=== PATIENT | female | born 1935 | race African-American/Black ===

== ENCOUNTER 2016-05-25 00:14 | Inpatient (IN) | payer MEDICARE, MEDICAID ==
--- NOTE | 2016-05-25 00:30 | ED Physician Chart ---
Chief Complaint/HPI - Patient Information Date Seen:: 05/25/16 Time Seen:: 00:20 Chief Complaint:: agitation History of Present Illness:: 80-year-old female history of bipolar disorder, brought in from care facility with acute, constant, moderate to severe, agitation since this morning. Has associated aggressive behavior and physically aggressive behavior toward staff. Limited history due to underlying uncooperative behavior, psychosis and dementia History provided by EMS and EMS run sheet Historian:: EMS Review:: Nurse's Note Reviewed, EMS run form Reviewed, Transfer documents Reviewed Review of Systems - Review of Systems Other: Complete system review otherwise unremarkable except as noted in history of present illness. Past Medical History - Past Medical History Past Medical History: HTN, DM, Dyslipidemia, Seizures, Other (long-term anticoagulant use, bipolar disorder) Family History: None Social History: Non Smoker, No Alcohol, No Drug Use, Care Facility Surgical History: None Psychiatricy History: None, Bipolar Medication: None Family Medical History - Family Member Mother History Unknown: Yes Physical Exam - Physical Examination Other:: INITIAL VITAL SIGNS: Reviewed by me GENERAL: Alert and interactive but demented and semicooperative. No acute distress HEAD: Head is normocephalic and atraumatic EYES: EOMI. PERRL. No scleral icterus. No conjunctival injection ENT: Moist mucous membranes. NECK: Supple. No masses. Full range of motion RESPIRATORY: No tachypnea. Clear breath sounds bilaterally. No wheezing, rales, or rhonchi CV: Regular rate and rhythm. No murmurs, rubs, or gallops ABDOMEN: Soft, non-distended, non-tender. No guarding. No rebound. No masses. EXTREMITIES: No deformity. No cyanosis. No edema. SKIN: Warm and dry. No obvious rashes. NEUROLOGIC: Alert and oriented. Face is symmetric. Speech is normal. Moves all extremities equally. Motor and sensory distally intact. Labs/Radiology/EKG Results - Lab Results Results: Lab Results 05/25/16 05/25/16 05/25/16 Range/Units 00:46 00:46 00:46 WBC 9.9 (4.8-10.8) Th/cmm RBC 4.19 (3.80-5.20) Mil/cmm Hgb 12.0 (11.7-16.1) gm/dL Hct 35.6 (35.0-45.0) % MCV 84.9 (81-100) fl MCH 28.5 (27.0-31.0) pg MCHC Differential 33.6 (28.0-36.0) pg RDW 15.6 (11.5-20.0) % Plt Count 242 (150-400) Th/cmm MPV 8.0 fl Neutrophils % 64.1 (40.0-80.0) % Lymphocytes % 26.0 (20.0-50.0) % Monocytes % 9.0 (2.0-10.0) % Eosinophils % 0.7 (0.0-5.0) % Basophils % 0.2 (0.0-2.0) % PT (9.5-11.5) SECONDS INR (0.5-1.4) PTT (Actin FS) (26.0-38.0) SECONDS Sodium 137 (136-145) mEq/L Potassium 4.2 (3.5-5.1) mEq/L Chloride 107 (98-107) mEq/L Carbon Dioxide 28.2 (21.0-31.0) mEq/L Anion Gap 6.0 L (7.0-16.0) BUN 14 (7-25) mg/dL Creatinine 1.4 H (0.6-1.2) mg/dL Est GFR ( Amer) TNP Est GFR (Non-Af Amer) TNP BUN/Creatinine Ratio 10.0 Glucose 143 H (70-105) mg/dL Calcium 10.4 H (8.6-10.3) mg/dL Triglycerides 104 (<150) mg/dL Cholesterol 186 (<200) mg/dL LDL Cholesterol Direct 122 (75-193) mg/dL HDL Cholesterol 43 (23-92) mg/dL TSH 1.83 (0.34-5.60) uIU/ml Urine Source Urine Color Urine Clarity (CLEAR) Urine pH Ur Specific Edison (1.005-1.030) Urine Protein (NEGATIVE) mg/dL Urine Glucose (UA) (NEGATIVE) mg/dL Urine Ketones (NEGATIVE) mg/dL Urine Blood (NEGATIVE) Urine Nitrate (NEGATIVE) Urine Bilirubin (NEGATIVE) Urine Urobilinogen (0.2 - 1.0) E.U./dL Ur Leukocyte Esterase (NEGATIVE) Urine RBC (0-5) /hpf Urine WBC (0-5) /hpf Ur Epithelial Cells (FEW) /lpf Urine Bacteria (NONE SEEN) /hpf 05/25/16 05/25/16 Range/Units 00:46 01:00 WBC (4.8-10.8) Th/cmm RBC (3.80-5.20) Mil/cmm Hgb (11.7-16.1) gm/dL Hct (35.0-45.0) % MCV (81-100) fl MCH (27.0-31.0) pg MCHC Differential (28.0-36.0) pg RDW (11.5-20.0) % Plt Count (150-400) Th/cmm MPV fl Neutrophils % (40.0-80.0) % Lymphocytes % (20.0-50.0) % Monocytes % (2.0-10.0) % Eosinophils % (0.0-5.0) % Basophils % (0.0-2.0) % PT 11.8 H (9.5-11.5) SECONDS INR 1.12 (0.5-1.4) PTT (Actin FS) 28.1 (26.0-38.0) SECONDS Sodium (136-145) mEq/L Potassium (3.5-5.1) mEq/L Chloride (98-107) mEq/L Carbon Dioxide (21.0-31.0) mEq/L Anion Gap (7.0-16.0) BUN (7-25) mg/dL Creatinine (0.6-1.2) mg/dL Est GFR ( Amer) Est GFR (Non-Af Amer) BUN/Creatinine Ratio Glucose (70-105) mg/dL Calcium (8.6-10.3) mg/dL Triglycerides (<150) mg/dL Cholesterol (<200) mg/dL LDL Cholesterol Direct (75-193) mg/dL HDL Cholesterol (23-92) mg/dL TSH (0.34-5.60) uIU/ml Urine Source CLEAN C Urine Color YELLOW Urine Clarity HAZY (CLEAR) Urine pH 7.5 Ur Specific Edison 1.015 (1.005-1.030) Urine Protein NEGATIVE (NEGATIVE) mg/dL Urine Glucose (UA) NEGATIVE (NEGATIVE) mg/dL Urine Ketones NEGATIVE (NEGATIVE) mg/dL Urine Blood TRACE (NEGATIVE) Urine Nitrate NEGATIVE (NEGATIVE) Urine Bilirubin NEGATIVE (NEGATIVE) Urine Urobilinogen 0.2 (0.2 - 1.0) E.U./dL Ur Leukocyte Esterase TRACE H (NEGATIVE) Urine RBC 2-5 (0-5) /hpf Urine WBC 2-5 (0-5) /hpf Ur Epithelial Cells MODERATE (FEW) /lpf Urine Bacteria MODERATE (NONE SEEN) /hpf - EKG Interpretations Comments:: 12-lead EKG Interpretation by Veronika Duque MD: Sinus tachycardia with ventricular rate of 102 beats per minute Normal axis Normal intervals No acute ST or T wave changes. No obvious STEMI ED Septic Shock - . Is Septic Shock (SBP<90, OR Lactate>4 mmol\L) present?: No Reassessment (Disposition) - Reassessment Reassessment:: Cleared for admission to geriatric psych unit Reassessment Condition:: Improved - Diagnosis Diagnosis:: Acute psychosis, NOS - Patient Disposition Discharge/Transfer:: Acute Care w/in this hosp Admitted to:: [facility] Time:: 02:00 Condition at Disposition:: Stable ED Discharge Plan - Patient Disposition Admit/Discharge/Transfer: Other Care w/in this hosp
[2016-05-25 00:57] LABS: % BASOPHILS 0.2 % (0.0-2.0); % EOSINOPHILS 0.7 % (0.0-5.0); % NEUTROPHILS 64.1 % (40.0-80.0); HEMATOCRIT 35.6 % (35.0-45.0); MEAN CELL VOLUME 84.9 fl (81-100); MEAN CORPUSCULAR HEMOGLOBIN 28.5 pg (27.0-31.0); MEAN CORPUSCULAR HGB CONC 33.6 pg (28.0-36.0); NEUTROPHILE ABSOLUTE 6.3 Th/cmm (1.8-8.0); PLATELET COUNT 242 Th/cmm (150-400); RED BLOOD COUNT 4.19 Mil/cmm (3.80-5.20); RED CELL DISTRIBUTION WIDTH 15.6 % (11.5-20.0); WHITE BLOOD COUNT 9.9 Th/cmm (4.8-10.8)
[2016-05-25 01:08] LABS: INR 1.12 (0.5-1.4); PROTHROMBIN TIME (TEST) 11.8 SECONDS (9.5-11.5)
[2016-05-25 01:12] LABS: BUN - UREA NITROGEN 14 mg/dL (7-25); CALCIUM SERUM 10.4 mg/dL (8.6-10.3); CARBON DIOXIDE 28.2 mEq/L (21.0-31.0); CHLORIDE 107 mEq/L (98-107); CHOLESTEROL 186 mg/dL (<200); CREATININE - SERUM 1.4 mg/dL (0.6-1.2); GLUCOSE 143 mg/dL (70-105); POTASSIUM SERUM 4.2 mEq/L (3.5-5.1); SODIUM SERUM 137 mEq/L (136-145); TRIGLYCERIDES 104 mg/dL (<150)
[2016-05-25 01:42] LABS: URINE BILIRUBIN NEGATIVE (NEGATIVE); URINE BLOOD TRACE (NEGATIVE); URINE COLOR YELLOW; URINE GLUCOSE (UA) NEGATIVE (NEGATIVE); URINE KETONE NEGATIVE (NEGATIVE); URINE PH 7.5; URINE PROTEIN NEGATIVE (NEGATIVE); URINE UROBILINOGEN 0.2 E.U./dL (0.2 - 1.0)
[2016-05-25 01:43] LABS: URINE BACTERIA MODERATE /hpf (NONE SEEN); URINE EPITHELIAL CELLS MODERATE /lpf (FEW)
[2016-05-25] MEDS ORDERED: Magnesium Hydroxide (MOM) 30 mL UDC PO PRN (03:07)
[2016-05-25] MEDS ORDERED: Maalox 30 mL Cup PO PRN (03:07)
[2016-05-25 03:12] VITALS: BP 134/65
[2016-05-25] MEDS ORDERED: GLUCAGON HCl 1 MG KIT IM PRN (03:39)
[2016-05-25] MEDS: INSULIN ASPART SLIDING SCALE 100 UNITS/ML UNIT SUBQ SCH ×4 (06:42→21:48)
[2016-05-25] MEDS: Aspirin 81mg Chewable Tab PO SCH (09:17)
[2016-05-25] MEDS: Multivitamin Tab PO SCH (09:17)
[2016-05-25] MEDS: POLYETHYLENE GLYCOL 3350 17 GM PACK PO SCH ×2 (09:20→16:47)
[2016-05-25] MEDS: Polyvinyl Alcohol Ophth Soln 15 mL Bottle EACH EYE SCH ×3 (09:38→21:16)
[2016-05-25] MEDS: Insulin Detemir 100 units/mL 10mL Vial SUBQ SCH ×2 (09:42→21:48)
[2016-05-25] MEDS: Atorvastatin Calcium 10 MG TAB PO SCH (21:18)
[2016-05-25] MEDS: Enoxaparin 30 mg/0.3 mL 0.3mL Syr SUBQ SCH (21:19)
--- NOTE | 2016-05-25 22:26 | History & Physical ---
INTERNAL MEDICINE CONSULTATION HISTORY OF PRESENT ILLNESS: The patient is a 80-year-old female with past medical history significant for diabetes mellitus, diabetic angiopathy, neuropathy, hypertension, coronary artery disease, hyperlipidemia, peptic ulcer disease, gastritis, arthritis, and osteoporosis. SOCIAL HISTORY: No documented smoking or alcohol abuse. FAMILY HISTORY: Not available. REVIEW OF SYSTEMS: The patient has been recently treated for scabies. No chest pain. No shortness of breath. No nausea, no vomiting, and no abdominal pain. The patient has chronic pain, joint pain. PHYSICAL EXAMINATION: GENERAL: Obese female in no obvious respiratory distress. VITAL SIGNS: Include blood pressure 140/80, heart rate of , and respiration rate of 18. SKIN: Showed no cellulitis. No ulcer. No scabies. HEENT: Normal conjunctivae. NECK: Supple. LUNGS: Clear. Bilateral good air entry. No adventitious sounds. HEART: First and second present. ABDOMEN: Soft, minimal epigastric tenderness. Bowel sounds appeared good. EXTREMITIES: Show arthritis. NEUROLOGIC: The patient has spontaneous movement. LABORATORY DATA: Include white count of 9.9, hemoglobin 12.0, hematocrit 35.6, and platelet count 242,000. Sodium 137, potassium 4.2, chloride 107, bicarb 28.2, BUN 14, creatinine of 1.4, and glucose of 143. MEDICAL DIAGNOSES: In view of this exam, the patient's medical diagnoses include diabetes mellitus, diabetic angiopathy, neuropathy, hypertension, coronary artery disease, hyperlipidemia, peptic ulcer disease, gastritis, arthritis, osteoporosis, Parkinson's disease versus extrapyramidal side effects. CURRENT MEDICATIONS: Include the patient is on Norvasc 2.5 mg daily. The patient is on baby aspirin daily and Lipitor 40 mg daily. The patient is on Pepcid 20 mg daily, Neurontin 200 mg 3 times a day, glipizide 20 mg twice a day. The patient is on Apresoline 3 times a day, sliding scale, and Levemir 20 units daily. Thank you, Dr. Stuart, for letting me see your patient. JOB# [id number]
[2016-05-26] MEDS: INSULIN ASPART SLIDING SCALE 100 UNITS/ML UNIT SUBQ SCH ×4 (06:33→21:52)
--- NOTE | 2016-05-26 07:38 | Psychosocial Evaluation ---
FACILITY: [facility] PATIENT NAME: ORAL BRUNO MR#: [id number] CLINICIAN: Cr Stuart M.D. DATE OF ADMISSION: 05/25/2016 DATE OF VISIT: 05/25/2016 IDENTIFYING DATA: The patient is a 80-year-old -Israeli woman, resident of a assisted facility. Information obtained by interviewing the patient as well as reviewing the admission papers. JUSTIFICATION OF HOSPITALIZATION: The patient is admitted here on a voluntary basis in view of her acute psychosis and agitated behavior. CHIEF COMPLAINT: "I don't need to talk to you." HISTORY OF PRESENT ILLNESS: This is one of multiple psychiatric hospitalizations for this patient who is reported to have been recently hospitalized a month ago and has been referred over here from the [facility] ____ with acute agitation. Chart is reviewed. The patient is interviewed. During the interview, the patient is getting easily frustrated, irritable, and angry, and stating that she does not need to talk to me and I need to look into the records. PAST PSYCHIATRIC HISTORY: Please refer to the above. The patient was hospitalized and has been on mood stabilizers as well as antipsychotic medications. The patient compliance with the medication is noted to be questionable. MEDICAL HISTORY AND PHYSICAL EXAMINATION: Requested, done by Dr. Sousa. SUBSTANCE ABUSE HISTORY: None. PHYSICAL OR SEXUAL ABUSE HISTORY: None. LEGAL PROBLEMS: None at this time. STRENGTH AND ASSETS: The patient seems to be in good physical health. MENTAL STATUS EXAMINATION: The patient is a 80-year-old woman, moderately obese, superficially cooperative. Eye contact is fair. Mood is noted to be irritable. Affect is constricted. Insight and judgment at this time are noted to be very much impaired. Impulse control seems to be poor. The patient is screaming and yelling, and is not providing much of information. The patient is very paranoid, but the patient is not giving any information with regards to any command hallucinations. The patient is alert and awake, and is aware that she is in the hospital. DIAGNOSTIC IMPRESSION: AXIS I: Psychosis unspecified, rule out schizoaffective disorder. AXIS II: None. AXIS III: As per Dr. Sousa. IMMEDIATE TREATMENT PLAN: The patient is going to be observed on inpatient unit, provided with supportive psychotherapy. The patient is going to be closely monitored. I encouraged to participate in the groups and verbalize the concerns. Once stabilized, the patient is going to be discharged to self and will be followed up on an outpatient basis. ESTIMATED LENGTH OF STAY: 5-7 days. JOB# [id number] BERTHA/MARQUIS
[2016-05-26] MEDS: POLYETHYLENE GLYCOL 3350 17 GM PACK PO SCH ×2 (09:21→16:54)
[2016-05-26] MEDS: Multivitamin Tab PO SCH (09:22)
[2016-05-26] MEDS: Aspirin 81mg Chewable Tab PO SCH (09:24)
[2016-05-26] MEDS: Polyvinyl Alcohol Ophth Soln 15 mL Bottle EACH EYE SCH ×3 (09:27→21:18)
[2016-05-26] MEDS: Insulin Detemir 100 units/mL 10mL Vial SUBQ SCH ×2 (09:50→21:17)
[2016-05-26 11:17] LABS: HEP B CORE IGM Negative (Negative); HEP C ANTIBODY <0.1 s/co ratio (0.0-0.9)
[2016-05-26] MEDS: Atorvastatin Calcium 10 MG TAB PO SCH (21:00)
[2016-05-26] MEDS: Enoxaparin 30 mg/0.3 mL 0.3mL Syr SUBQ SCH (21:17)
--- NOTE | 2016-05-27 05:11 | Progress Notes ---
TIME SEEN: 6:00 p.m. SUBJECTIVE: Staff was spoken to. The patient is interviewed. Mood is noted to be irritable. Affect is constricted. The patient is still screaming and yelling. The patient has no insight into her illness. Coping skills are noted to be still poor. No side effects to the medications are noted. The patient has been having difficult time to cope with the stress. The patient is currently on Seroquel 50 mg 3 times a day and ____ times a day. Even with these medications, the patient tends to scream and yell and when I am asking for the information, the patient is stating that everything is written and the patient is getting very belligerent and not able to provide much of information. ASSESSMENT: The patient is still psychotic. PLAN: To continue the patient with the current medications. I encouraged the patient to verbalize the concerns rather than to act out. JOB# [id number]
[2016-05-27] MEDS: INSULIN ASPART SLIDING SCALE 100 UNITS/ML UNIT SUBQ SCH ×4 (06:56→20:56)
[2016-05-27] MEDS: Multivitamin Tab PO SCH (09:25)
[2016-05-27] MEDS: Aspirin 81mg Chewable Tab PO SCH (09:27)
[2016-05-27] MEDS: POLYETHYLENE GLYCOL 3350 17 GM PACK PO SCH ×2 (09:35→17:38)
[2016-05-27] MEDS: Polyvinyl Alcohol Ophth Soln 15 mL Bottle EACH EYE SCH ×3 (09:37→21:02)
[2016-05-27] MEDS: Insulin Detemir 100 units/mL 10mL Vial SUBQ SCH ×2 (09:42→20:57)
[2016-05-27] MEDS: Atorvastatin Calcium 10 MG TAB PO SCH (20:41)
[2016-05-27] MEDS: Enoxaparin 30 mg/0.3 mL 0.3mL Syr SUBQ SCH (20:42)
[2016-05-28] MEDS: INSULIN ASPART SLIDING SCALE 100 UNITS/ML UNIT SUBQ SCH ×4 (06:48→20:17)
--- NOTE | 2016-05-28 06:55 | Progress Notes ---
PSYCHIATRIC PROGRESS NOTE TIME PATIENT SEEN: 5:00 p.m. SUBJECTIVE: Staff was spoken to. The patient is interviewed. Mood is noted to be irritable. Affect is constricted. The patient continues to be very paranoid. Coping skills are noted to be very poor. The patient is screaming and yelling. The patient has no insight into her illness. The patient is currently on Seroquel 150 mg. Plan to increase it to 100 mg twice a day and continue the oxcarbazepine 300 mg 3 times a day and change the Depakote 250 mg twice a day and follow the patient. The patient's sleep is noted to be improving and appetite is noted to be fair at this time. ASSESSMENT: The patient is still psychotic and impulsive. PLAN: To continue the patient with the current medications and followup. JOB# [id number] MTDGio
[2016-05-28] MEDS: Aspirin 81mg Chewable Tab PO SCH (09:17)
[2016-05-28] MEDS: Insulin Detemir 100 units/mL 10mL Vial SUBQ SCH ×2 (09:18→20:22)
[2016-05-28] MEDS: Polyvinyl Alcohol Ophth Soln 15 mL Bottle EACH EYE SCH ×3 (09:19→20:23)
[2016-05-28] MEDS: Multivitamin Tab PO SCH (09:19)
[2016-05-28] MEDS: POLYETHYLENE GLYCOL 3350 17 GM PACK PO SCH ×2 (09:19→17:44)
[2016-05-28] MEDS: Atorvastatin Calcium 10 MG TAB PO SCH (20:19)
[2016-05-28] MEDS: Enoxaparin 30 mg/0.3 mL 0.3mL Syr SUBQ SCH (20:20)
--- NOTE | 2016-05-29 01:59 | Progress Notes ---
TIME PATIENT SEEN: 10:45 a.m. SUBJECTIVE: Staff was spoken to. The patient is interviewed. Mood is noted to be irritable. Affect is constricted. The patient is screaming and yelling and stating that she does not need to be on all these medications, tried to explain to her we are trying to adjust the dose of the medication, but the patient stated that she does not need to be on medications. Coping skills at this time are noted to be very poor. Sleep and appetite are also noted to be very poor. ASSESSMENT: The patient is still grossly psychotic and impulsive. PLAN: To continue the patient with the supportive therapy. I encouraged the patient to verbalize the concerns rather than to act out. JOB# [id number]
[2016-05-29] MEDS: INSULIN ASPART SLIDING SCALE 100 UNITS/ML UNIT SUBQ SCH ×4 (06:53→20:18)
[2016-05-29] MEDS: Polyvinyl Alcohol Ophth Soln 15 mL Bottle EACH EYE SCH ×3 (08:24→21:04)
[2016-05-29] MEDS: POLYETHYLENE GLYCOL 3350 17 GM PACK PO SCH ×2 (08:24→17:24)
[2016-05-29] MEDS: Aspirin 81mg Chewable Tab PO SCH (08:25)
[2016-05-29] MEDS: Multivitamin Tab PO SCH (08:28)
[2016-05-29] MEDS: Insulin Detemir 100 units/mL 10mL Vial SUBQ SCH ×2 (08:43→21:03)
[2016-05-29] MEDS: Enoxaparin 30 mg/0.3 mL 0.3mL Syr SUBQ SCH (21:01)
[2016-05-29] MEDS: Atorvastatin Calcium 10 MG TAB PO SCH (21:01)
[2016-05-30] MEDS: INSULIN ASPART SLIDING SCALE 100 UNITS/ML UNIT SUBQ SCH ×4 (06:53→20:41)
--- NOTE | 2016-05-30 07:18 | Progress Notes ---
PSYCHIATRIC PROGRESS NOTE TIME PATIENT SEEN: 8:45 a.m. SUBJECTIVE: Staff was spoken to. The patient is interviewed. Mood is noted to be dysphoric. Coping skills are noted to be poor. The patient is less irritable, but the patient has been on and off taking medication, has been on Seroquel 100 mg twice a day and the patient also has been placed on oxcarbazepine 300 mg 3 times a day and the patient's Depakote has been changed to 50 mg twice a day. With these medications, the patient is going to be observed and be encouraged to participate in the groups rather than to act out. ASSESSMENT: The patient is still impulsive. PLAN: To continue the patient with the supportive therapy, closely monitor the patient's behavior and follow through. JOB# [id number]
[2016-05-30] MEDS: Polyvinyl Alcohol Ophth Soln 15 mL Bottle EACH EYE SCH ×3 (09:25→20:39)
[2016-05-30] MEDS: POLYETHYLENE GLYCOL 3350 17 GM PACK PO SCH ×2 (09:25→19:22)
[2016-05-30] MEDS: Aspirin 81mg Chewable Tab PO SCH (09:26)
[2016-05-30] MEDS: Multivitamin Tab PO SCH (09:27)
[2016-05-30] MEDS: Insulin Detemir 100 units/mL 10mL Vial SUBQ SCH ×2 (09:39→20:41)
[2016-05-30] MEDS: Atorvastatin Calcium 10 MG TAB PO SCH (20:39)
[2016-05-30] MEDS: Enoxaparin 30 mg/0.3 mL 0.3mL Syr SUBQ SCH (20:46)
--- NOTE | 2016-05-31 00:23 | Progress Notes ---
TIME PATIENT SEEN: 1:30 p.m. SUBJECTIVE: Staff was spoken to. The patient is interviewed. Mood is noted to be dysphoric. Coping skills are noted to be very poor. The patient is stating that she needs to get out of here because she does not like the place, so the patient has been very paranoid at this time. Coping skills, at this time, are noted to be very poor. The patient's insight and judgment are also noted to be very much limited. PLAN: To continue the patient with the supportive therapy. I encouraged the patient to verbalize the concerns rather than to act out. JOB# [id number]
[2016-05-31] MEDS: INSULIN ASPART SLIDING SCALE 100 UNITS/ML UNIT SUBQ SCH ×4 (06:31→20:59)
[2016-05-31] MEDS: Multivitamin Tab PO SCH (09:05)
[2016-05-31] MEDS: Aspirin 81mg Chewable Tab PO SCH (09:05)
[2016-05-31] MEDS: Polyvinyl Alcohol Ophth Soln 15 mL Bottle EACH EYE SCH ×3 (09:12→21:08)
[2016-05-31] MEDS: POLYETHYLENE GLYCOL 3350 17 GM PACK PO SCH ×2 (09:13→17:23)
[2016-05-31] MEDS: Insulin Detemir 100 units/mL 10mL Vial SUBQ SCH ×2 (09:37→20:59)
[2016-05-31] MEDS: Atorvastatin Calcium 10 MG TAB PO SCH (20:51)
[2016-05-31] MEDS: Enoxaparin 30 mg/0.3 mL 0.3mL Syr SUBQ SCH (21:00)
--- NOTE | 2016-06-01 05:19 | Progress Notes ---
DATE: 05/31/2016 PSYCHIATRIC PROGRESS NOTE TIME PATIENT SEEN: 5:45 p.m. SUBJECTIVE: Staff was spoken to. The patient is interviewed. Mood is noted to be irritable. Affect is constricted. Insight and judgment are noted to be very much impaired. Impulse control seems to be poor. Coping skills are also noted to be poor. No side effects to the medications are noted. The patient has been still screaming and yelling and stating that she does not need to be in here. She needs to get out of here. ASSESSMENT: The patient is still psychotic and impulsive. PLAN: To continue the patient with the current medications. I encouraged her to verbalize the concerns rather than to act out. [facility]# [id number]
[2016-06-01] MEDS: INSULIN ASPART SLIDING SCALE 100 UNITS/ML UNIT SUBQ SCH ×4 (06:50→20:22)
[2016-06-01] MEDS: POLYETHYLENE GLYCOL 3350 17 GM PACK PO SCH ×2 (08:38→16:56)
[2016-06-01] MEDS: Aspirin 81mg Chewable Tab PO SCH (08:39)
[2016-06-01] MEDS: Multivitamin Tab PO SCH (08:40)
[2016-06-01] MEDS: Polyvinyl Alcohol Ophth Soln 15 mL Bottle EACH EYE SCH ×3 (09:34→20:23)
[2016-06-01] MEDS: Insulin Detemir 100 units/mL 10mL Vial SUBQ SCH ×2 (09:39→20:56)
[2016-06-01] MEDS: Enoxaparin 30 mg/0.3 mL 0.3mL Syr SUBQ SCH (20:22)
[2016-06-01] MEDS: Atorvastatin Calcium 10 MG TAB PO SCH (20:23)
--- NOTE | 2016-06-02 04:35 | Progress Notes ---
DATE: 06/01/2016 PSYCHIATRIC PROGRESS NOTE TIME PATIENT SEEN: a.m. SUBJECTIVE: Staff was spoken to. The patient is interviewed. Mood is noted to be irritable. Affect is constricted. Insight and judgment are noted to be very much impaired. The patient is reported to have been displaying sexually inappropriate behavior. The patient is trying to take the staff's hand and then put it on her breast. The patient has no insight into her illness. Continues to be displaying mood swings. The patient is, however, compliant with the medication grudgingly. ASSESSMENT: The patient is still having mood swings. PLAN: To continue the patient with the supportive therapy. I encouraged the patient to verbalize the concerns rather than to act out. JOB# [id number]
[2016-06-02] MEDS: INSULIN ASPART SLIDING SCALE 100 UNITS/ML UNIT SUBQ SCH ×4 (06:32→20:11)
[2016-06-02] MEDS: Aspirin 81mg Chewable Tab PO SCH (08:53)
[2016-06-02] MEDS: Insulin Detemir 100 units/mL 10mL Vial SUBQ SCH ×2 (08:53→21:29)
[2016-06-02] MEDS: Polyvinyl Alcohol Ophth Soln 15 mL Bottle EACH EYE SCH ×3 (08:53→21:23)
[2016-06-02] MEDS: POLYETHYLENE GLYCOL 3350 17 GM PACK PO SCH ×3 (08:53→17:19)
[2016-06-02] MEDS: Multivitamin Tab PO SCH (08:53)
[2016-06-02] MEDS: Enoxaparin 30 mg/0.3 mL 0.3mL Syr SUBQ SCH (21:14)
--- NOTE | 2016-06-02 23:34 | Progress Notes ---
DATE: 06/02/2016 TIME PATIENT SEEN: 10:30 a.m. SUBJECTIVE: Staff was spoken to. The patient is interviewed. Mood is noted to be irritable. Affect is constricted. The patient is not acknowledging what she has been doing with the staff members and the patient has been getting easily irritable and angry. No side effects to the medications are noted at this time. ASSESSMENT: The patient is still having mood swings. PLAN: To continue the patient with the supportive therapy. I encouraged the patient to verbalize the concerns rather than to act out. JOB# [id number]
[2016-06-03] MEDS: INSULIN ASPART SLIDING SCALE 100 UNITS/ML UNIT SUBQ SCH ×4 (06:55→21:13)
[2016-06-03] MEDS: Polyvinyl Alcohol Ophth Soln 15 mL Bottle EACH EYE SCH ×3 (10:11→21:55)
[2016-06-03] MEDS: POLYETHYLENE GLYCOL 3350 17 GM PACK PO SCH ×2 (10:11→17:15)
[2016-06-03] MEDS: Multivitamin Tab PO SCH (10:12)
[2016-06-03] MEDS: Aspirin 81mg Chewable Tab PO SCH (10:12)
[2016-06-03] MEDS: Insulin Detemir 100 units/mL 10mL Vial SUBQ SCH (10:20)
[2016-06-03] MEDS: Enoxaparin 30 mg/0.3 mL 0.3mL Syr SUBQ SCH (21:59)
[2016-06-04] MEDS: INSULIN ASPART SLIDING SCALE 100 UNITS/ML UNIT SUBQ SCH ×4 (06:54→21:02)
[2016-06-04] MEDS: Multivitamin Tab PO SCH (08:12)
[2016-06-04] MEDS: Aspirin 81mg Chewable Tab PO SCH (08:12)
[2016-06-04] MEDS: Insulin Detemir 100 units/mL 10mL Vial SUBQ SCH (08:14)
[2016-06-04] MEDS: POLYETHYLENE GLYCOL 3350 17 GM PACK PO SCH ×2 (08:17→16:12)
[2016-06-04] MEDS: Polyvinyl Alcohol Ophth Soln 15 mL Bottle EACH EYE SCH ×3 (08:22→21:01)
--- NOTE | 2016-06-04 20:10 | Progress Notes ---
DATE: 06/03/2016 PSYCHIATRIC PROGRESS NOTE TIME PATIENT SEEN: 6:15 a.m. SUBJECTIVE: Staff was spoken to. The patient is interviewed. Mood is noted to be anxious and irritable. The patient has been trying to grab my hand when I am talking to her. The patient has no boundaries and continues to be very paranoid. Insight and judgment are noted to be still impaired. No side effects to the medications are noted so far. ASSESSMENT: The patient is still psychotic. PLAN: To continue the patient with the current medications. Since the patient has been too drowsy, the morning doses of medications are being withheld. [facility]# [id number]
[2016-06-04] MEDS: Enoxaparin 30 mg/0.3 mL 0.3mL Syr SUBQ SCH (21:04)
[2016-06-05] MEDS: INSULIN ASPART SLIDING SCALE 100 UNITS/ML UNIT SUBQ SCH ×4 (06:41→21:28)
--- NOTE | 2016-06-05 08:24 | Progress Notes ---
DATE: 06/04/2016 PSYCHIATRIC PROGRESS NOTE TIME PATIENT SEEN: 10:15 a.m. SUBJECTIVE: Staff was spoken to. The patient is interviewed. Mood is noted to be irritable. Affect is constricted. The patient's insight and judgment are noted to be still impaired. The patient has been acting aggressively. The patient is trying to grab the staff's hand and trying to put on her breast. The patient is advised not to do so, but the patient is not displaying any remorse as control. The patient is able to tolerate the medications so far. PLAN: To continue the patient with the supportive therapy and continue current medications and followup. JOB# [id number]
[2016-06-05] MEDS: Aspirin 81mg Chewable Tab PO SCH (10:54)
[2016-06-05] MEDS: Multivitamin Tab PO SCH (10:55)
[2016-06-05] MEDS: Insulin Detemir 100 units/mL 10mL Vial SUBQ SCH (10:55)
[2016-06-05] MEDS: POLYETHYLENE GLYCOL 3350 17 GM PACK PO SCH ×2 (10:56→16:27)
[2016-06-05] MEDS: Polyvinyl Alcohol Ophth Soln 15 mL Bottle EACH EYE SCH ×3 (10:56→21:40)
[2016-06-05] MEDS: Enoxaparin 30 mg/0.3 mL 0.3mL Syr SUBQ SCH (21:20)
--- NOTE | 2016-06-05 22:55 | Progress Notes ---
DATE: 06/05/2016 PSYCHIATRIC PROGRESS NOTE TIME PATIENT SEEN: 11:45 a.m. SUBJECTIVE: Staff was spoken to. The patient is interviewed. Mood is noted to be irritable. Affect is constricted. Insight and judgment are noted to be very much impaired. Impulse control is noted to be poor. The patient is screaming and yelling. The patient has no insight into her illness. The patient is going to be given 2 mg of Haldol IM at this time in view of the patient's screaming and yelling behavior. The patient has not been able to contract for safety at this time since the patient is also reported to have been having acute mood swings and presenting with the disruptive behavior. It is decided to increase the dose of Depakote to 500 mg twice a day and follow the patient with supportive therapy. JOB# [id number]
[2016-06-06] MEDS: INSULIN ASPART SLIDING SCALE 100 UNITS/ML UNIT SUBQ SCH ×4 (07:39→21:00)
[2016-06-06] MEDS: Multivitamin Tab PO SCH (09:01)
[2016-06-06] MEDS: Aspirin 81mg Chewable Tab PO SCH (09:01)
[2016-06-06] MEDS: Insulin Detemir 100 units/mL 10mL Vial SUBQ SCH (09:03)
[2016-06-06] MEDS: POLYETHYLENE GLYCOL 3350 17 GM PACK PO SCH ×2 (09:06→17:54)
[2016-06-06] MEDS: Polyvinyl Alcohol Ophth Soln 15 mL Bottle EACH EYE SCH ×3 (09:07→21:30)
[2016-06-06] MEDS: Enoxaparin 30 mg/0.3 mL 0.3mL Syr SUBQ SCH (21:30)
--- NOTE | 2016-06-07 00:53 | Progress Notes ---
DATE: 06/06/2016 TIME PATIENT SEEN: 07:00 a.m. SUBJECTIVE: Staff was spoken to. The patient is interviewed. Mood is noted to be irritable. Affect is constricted. Insight and judgment are noted to be very much impaired. Impulse control seems to be poor. Coping skills are also noted to be very poor. The patient is still testing the limits. No side effects to the medications are noted. The patient is trying to grab and whenever she is not getting her way, she is screaming and yelling and the patient has no insight into her illness at this time. PLAN: To continue the patient with the current medications. I encouraged the patient to verbalize the concerns rather than to act out. [facility]# [id number]
[2016-06-07] MEDS: INSULIN ASPART SLIDING SCALE 100 UNITS/ML UNIT SUBQ SCH ×4 (06:59→20:42)
[2016-06-07] MEDS: Aspirin 81mg Chewable Tab PO SCH (09:13)
[2016-06-07] MEDS: Multivitamin Tab PO SCH (09:13)
[2016-06-07] MEDS: Polyvinyl Alcohol Ophth Soln 15 mL Bottle EACH EYE SCH ×3 (09:17→20:33)
[2016-06-07] MEDS: POLYETHYLENE GLYCOL 3350 17 GM PACK PO SCH ×2 (09:19→16:32)
[2016-06-07] MEDS: Insulin Detemir 100 units/mL 10mL Vial SUBQ SCH (09:22)
[2016-06-07] MEDS ORDERED: Haloperidol Lactate 5 mg/mL 1mL Vial IM ONE (11:29)
[2016-06-07] MEDS ORDERED: Haloperidol Lactate 5 mg/mL 1mL Vial ONE (11:30)
[2016-06-07] MEDS: Enoxaparin 30 mg/0.3 mL 0.3mL Syr SUBQ SCH (20:42)
[2016-06-08] MEDS: INSULIN ASPART SLIDING SCALE 100 UNITS/ML UNIT SUBQ SCH ×4 (06:41→20:30)
[2016-06-08] MEDS: POLYETHYLENE GLYCOL 3350 17 GM PACK PO SCH ×2 (09:40→16:54)
[2016-06-08] MEDS: Aspirin 81mg Chewable Tab PO SCH (09:42)
[2016-06-08] MEDS: Multivitamin Tab PO SCH (09:43)
[2016-06-08] MEDS: Polyvinyl Alcohol Ophth Soln 15 mL Bottle EACH EYE SCH ×3 (09:43→20:47)
[2016-06-08] MEDS: Insulin Detemir 100 units/mL 10mL Vial SUBQ SCH (09:44)
--- NOTE | 2016-06-08 12:40 | Progress Notes ---
DATE: 06/07/2016 PSYCHIATRIC PROGRESS NOTE TIME PATIENT SEEN: 9:30 a.m. SUBJECTIVE: Staff was spoken to. The patient is interviewed. Mood is noted to be irritable. Affect is constricted. Insight and judgment are noted to be still impaired. Impulse control seems to be poor. The patient is screaming and yelling. The patient has no insight into her illness. ASSESSMENT: The patient is still grossly psychotic. PLAN: To continue the patient with supportive therapy. I encouraged the patient to verbalize the concerns rather than to act out. JOB# [id number]
[2016-06-08] MEDS: Enoxaparin 30 mg/0.3 mL 0.3mL Syr SUBQ SCH (20:25)
[2016-06-09] MEDS: INSULIN ASPART SLIDING SCALE 100 UNITS/ML UNIT SUBQ SCH ×3 (06:33→17:03)
[2016-06-09] MEDS: POLYETHYLENE GLYCOL 3350 17 GM PACK PO SCH ×2 (09:36→16:16)
[2016-06-09] MEDS: Insulin Detemir 100 units/mL 10mL Vial SUBQ SCH (09:39)
[2016-06-09] MEDS: Multivitamin Tab PO SCH (09:39)
[2016-06-09] MEDS: Aspirin 81mg Chewable Tab PO SCH (09:41)
[2016-06-09] MEDS: Polyvinyl Alcohol Ophth Soln 15 mL Bottle EACH EYE SCH ×2 (09:46→15:00)
--- NOTE | 2016-06-09 19:20 | Progress Notes ---
DATE: 06/08/2016 PSYCHIATRIC PROGRESS NOTE TIME PATIENT SEEN: 5:00 p.m. SUBJECTIVE: Staff was spoken to. The patient is interviewed. Mood is noted to be irritable. Affect is constricted. The patient has been screaming and yelling, but those yelling and screaming spells are going down. No side effects to the medications are noted today. The patient has been able to tolerate the medication. ASSESSMENT: The patient is still psychotic. PLAN: To continue the patient with the supportive therapy and work with the caseworker intake with regards to placement. JOB# [id number]
--- NOTE | 2016-06-10 06:07 | Progress Notes ---
DATE: 06/09/2016 TIME PATIENT SEEN: 2:00 p.m. SUBJECTIVE: Staff was spoken to. The patient is interviewed. Mood is noted to be less irritable. Affect is appropriate. Not suicidal or homicidal. Insight and judgment noted to be improving. Impulse control seems to be fair. No side effects to the medications are noted. The patient has attended ____there is a scream and yell, but the patient is able to be redirected today. ASSESSMENT: The patient is stabilizing. PLAN: To discharge the patient today for followup on outpatient basis. JOB# [id number]
--- NOTE | 2016-06-16 23:37 | Discharge Summary ---
DATE OF DISCHARGE: 06/09/2016 IDENTIFYING DATA: The patient is a 80-year-old -Citizen Of [place] woman, resident of long term facility. JUSTIFICATION OF HOSPITALIZATION: The patient is admitted on a voluntary basis in view of her acute psychosis and agitation. CHIEF COMPLAINT: "I don't need to talk to you." DIAGNOSIS AT THE TIME OF ADMISSION: Psychotic disorder, not otherwise specified; rule out schizoaffective disorder. SECONDARY DIAGNOSIS: None. MEDICAL DIAGNOSES: As per Dr. Sousa. HISTORY OF PRESENT ILLNESS: Please refer to the 05/25/2016, dictation done by me. Physical examination was done by Dr. Sousa and is noted to be significant for diabetes mellitus, neuropathy, hypertension, coronary artery disease, hyperlipidemia and Parkinson disease. HOSPITAL COURSE AND RESPONSE TO TREATMENT: The patient has been observed on inpatient unit, provided with supportive psychotherapy. Blood work has been reviewed by Dr. Sousa and the patient has been closely monitored and encouraged to participate in the groups. The patient has been continued on the Seroquel, which was given 50 mg at bedtime and 100 mg twice a day. The patient also has been encouraged to verbalize the concerns. The patient has been placed on the oxcarbazepine ____ mg 3 times a day and ____ acid 500 mg twice. The patient has a tendency to grab the male staff or the workers and then put their hands on her breasts. The patient has been screaming and yelling whenever she does not get her way. The patient has been closely monitored and encouraged to participate in groups and verbalize the concerns. The patient started to stabilize and the patient was finally discharged with recommendation that she is going to be placed at [facility] to be followed up by ____. MENTAL STATUS EXAMINATION: At the time of discharge, the patient's mood is noted to be anxious. Coping skills are noted to be improving. Sleep and appetite are also noted to be improving. The patient has been able to verbalize the concerns rather than to act out at the time of discharge. CONDITION: At the time of discharge is noted to be stable. DIAGNOSES AT THE TIME OF DISCHARGE: AXIS I: Schizoaffective disorder. AXIS II: None. AXIS III: Obesity, diabetes mellitus, hypertension, COPD, arthritis and hyperlipidemia. AFTERCARE PLAN: The patient is discharged to [facility] to be followed up on outpatient basis. PROGNOSIS: At the time of discharge noted to be guarded. JOB# [id number]
== END 2016-06-09 18:00 | DRG 885 ==
LOC: ER 00:14 → GERO 02:00
PROVIDERS: ADMIT Psychiatry & Neurology Psychiatry; ATTEND Psychiatry & Neurology Psychiatry
DX: F29 Unspecified psychosis not due to a substance or known physiological condition (principal); F03.90 Unspecified dementia, unspecified severity, without behavioral disturbance, psychotic disturbance, mood disturbance, and anxiety; E11.41 Type 2 diabetes mellitus with diabetic mononeuropathy; F31.9 Bipolar disorder, unspecified; I10 Essential (primary) hypertension; E78.5 Hyperlipidemia, unspecified; I25.10 Atherosclerotic heart disease of native coronary artery without angina pectoris; K21.9 Gastro-esophageal reflux disease without esophagitis; K27.9 Peptic ulcer, site unspecified, unspecified as acute or chronic, without hemorrhage or perforation; M19.90 Unspecified osteoarthritis, unspecified site; M81.0 Age-related osteoporosis without current pathological fracture; Z79.01 Long term (current) use of anticoagulants
CPT/HCPCS: 36415-UA; 80048-TC; 80061-TC; 80074-90; 81001-TC; 82948-90; 84443-TC; 85025-TC; 85610-TC; 85730-TC; 86592-TC; 93005; J1630; J1650; J1815; Z7610